=== PATIENT | female | born 1985 | race Two or more races ===

== ENCOUNTER 2019-09-19 16:30 | Inpatient (IN) | payer BC ==
[~2019-09-19] VITALS: Ht 157.5 cm; Wt 84.1 kg
[2019-09-19] MEDS ORDERED: PANTOPRAZOLE 40 MG/10 ML VIAL INJ IV STA (21:48)
[2019-09-19] MEDS ORDERED: SODIUM CHLORIDE 0.9% 1,000 ML IVB ONE (21:48)
[2019-09-19] MEDS ORDERED: MORPHINE SULFATE 4 MG/ML SYR/VIAL IV ONE (22:00)
[2019-09-19] MEDS ORDERED: ONDANSETRON HCL 4 MG/2 ML VIAL IV ONE (22:00)
[2019-09-19 22:10] LABS: Basophils # (auto) 0 uL; Basophils % (auto) 0.4 % (0.0-2.0); Eosinophils # (auto) 0 uL; Eosinophils % (auto) 0.1 % (0.0-7.0); Hematocrit 37.5 % (36.0-46.0); Hemoglobin 13.3 g/dL (12.2-16.2); Lymphocytes % (auto) 12.9 % (10.0-50.0); Mean Corpuscular Hemoglobin 31.3 pg (28.0-32.0); Mean Corpuscular Hgb Conc. 35.4 g/dL (32.0-36.0); Mean Corpuscular Volume 88.3 fL (80.0-100.0); Monocytes # (auto) 0.5 uL; Monocytes % (auto) 5.8 % (0.0-12.0); Neutrophils # (auto) 6.5 uL; Neutrophils % (auto) 80.8 % (37.0-80.0); Platelet Count (auto) 246 10^3/uL (140-450); Red Blood Cells 4.24 10^6/uL (4.0-5.20); Red Cell Distribution Width 13.2 % (11.8-14.3); White Blood Cell 8.1 10^3/uL (4.4-10.8)
[2019-09-19 22:20] LABS: Urine Bacteria MANY /hpf (None Seen); Urine Blood Negative /uL (Negative); Urine Hyaline Cast FEW /lpf (0 - 2); Urine Specific Gravity 1.006 (1.001-1.035); Urine WBC 2 /hpf (0 - 5)
[2019-09-19 22:27] LABS: Albumin 3.9 g/dL (3.4-5.0); BUN/Creatinine Ratio 15.6; Calcium 8.6 mg/dL (8.5-10.1); Potassium 3.9 mmol/L (3.5-5.1)
[2019-09-19 22:30] LABS: Bilirubin, Total 0.5 mg/dL (0.2-1.0); Total Protein 8.3 g/dL (6.4-8.2)
[2019-09-20] MEDS ORDERED: MORPHINE SULFATE 4 MG/ML SYR/VIAL IV ONE ×2 (01:15→03:15)
[2019-09-20] MEDS ORDERED: SODIUM CHLORIDE 0.9% 1,000 ML IV ONE (01:15)
[2019-09-20] MEDS ORDERED: cefTRIAXone 1GM/50ML D5W 50 ML IV ONE (02:00)
[2019-09-20] MEDS ORDERED: MORPHINE SULFATE 4 MG/ML SYR/VIAL IV PRN ×2 (02:45→17:15)
[2019-09-20] MEDS ORDERED: TEMAZEPAM 15 MG CAP PO PRN (02:45)
[2019-09-20] MEDS ORDERED: ONDANSETRON HCL 4 MG/2 ML VIAL IV PRN (02:45)
[2019-09-20] MEDS ORDERED: ACETAMINOPHEN 325 MG TAB PO PRN (02:45)
[2019-09-20] MEDS ORDERED: SODIUM CHLORIDE 0.9% 1,000 ML IV SCH (04:00)
--- NOTE | 2019-09-20 07:55 | NUR ---
MS admit from ER SAMARIA GARCIA admitted to tele/MS after SBAR received. Patient oriented to MIKKI RODAS, RN primary RN, unit, room, bed, and unit policies regarding patient care and visiting hours. Patient weighed by bedscale and encouraged to call if they need any assistance. All questions and concerns addressed, patient verbalized understanding.
[2019-09-20 09:00] VITALS: BP 132/92
[2019-09-20] MEDS ORDERED: MORPHINE SULF INJ 2 MG/ML SYRINGE 1ML ONE (09:21)
[2019-09-20] MEDS ORDERED: MORPHINE SULF INJ 2 MG/ML SYRINGE 1ML IV ONE (09:30)
[2019-09-20] MEDS: FAMOTIDINE 20 MG TAB PO SCH ×2 (10:50→21:28)
[2019-09-20 13:00] VITALS: BP 105/66
[2019-09-20] MEDS: D5W/SOD CHLO 0.9% 1,000 ML IV SCH (14:45)
--- NOTE | 2019-09-20 15:13 | NUR ---
PATIENT BACK FROM CT ABDOMEN WITH CONTRAST.
[2019-09-20] MEDS ORDERED: LIDOCAINE 1% HCL (LOCAL ANESTH.) INJ 20ML MDV ONE (15:27)
[2019-09-20] MEDS ORDERED: SUCCINYLCHOLINE CHLORIDE 20 MG/ML 10ML VIAL IV ONE (15:27)
[2019-09-20] MEDS ORDERED: SODIUM CHLORIDE LOCK 10 ML ONE (15:36)
[2019-09-20] MEDS ORDERED: ONDANSETRON HCL 4 MG/2 ML VIAL ONE (15:36)
[2019-09-20] MEDS ORDERED: PROPOFOL 10 MG/ML 20 ML IV ONE (15:36)
[2019-09-20] MEDS ORDERED: MIDAZOLAM HCL 1MG/1ML-2 ML VIAL ONE (15:36)
[2019-09-20] MEDS ORDERED: fentaNYL CITRATE 100 MCG/2 ML VL ONE (15:36)
[2019-09-20] MEDS ORDERED: ROCURONIUM 10MG/ML 10ML VIAL IV ONE (15:36)
[2019-09-20 15:55] LABS: Basophils # (auto) 0 uL; Basophils % (auto) 0.3 % (0.0-2.0); Eosinophils # (auto) 0 uL; Eosinophils % (auto) 0.1 % (0.0-7.0); Hematocrit 36.1 % (36.0-46.0); Hemoglobin 12.6 g/dL (12.2-16.2); Lymphocytes # (auto) 1.2 uL; Lymphocytes % (auto) 14.2 % (10.0-50.0); Mean Corpuscular Hemoglobin 30.8 pg (28.0-32.0); Mean Corpuscular Hgb Conc. 34.9 g/dL (32.0-36.0); Mean Corpuscular Volume 88.1 fL (80.0-100.0); Monocytes # (auto) 0.6 uL; Monocytes % (auto) 7.7 % (0.0-12.0); Neutrophils # (auto) 6.4 uL; Neutrophils % (auto) 77.7 % (37.0-80.0); Platelet Count (auto) 236 10^3/uL (140-450); Red Cell Distribution Width 13.2 % (11.8-14.3); White Blood Cell 8.2 10^3/uL (4.4-10.8)
--- NOTE | 2019-09-20 15:59 | NUR ---
Took patient down to the OR for laparoscopic cholecystectomy @ [id number]
[2019-09-20] MEDS ORDERED: ceFAZolin 1GM/50ML 50 ML IV ONE (16:03)
[2019-09-20 16:05] LABS: INR 1.02 (0.9-1.15)
[2019-09-20 16:20] LABS: Calcium 8.2 mg/dL (8.5-10.1); Potassium 3.9 mmol/L (3.5-5.1)
[2019-09-20 16:26] LABS: Albumin 3.5 g/dL (3.4-5.0); BUN/Creatinine Ratio 10.5; Bilirubin, Total 0.7 mg/dL (0.2-1.0); Total Protein 7.5 g/dL (6.4-8.2)
[2019-09-20] MEDS ORDERED: NEOSTIGMINE 1 MG/ML INJ (10mg/10ML VIAL) ONE (16:31)
[2019-09-20] MEDS ORDERED: GLYCOPYRROLATE 0.2 MG/ML 1ML VIAL ONE (16:31)
[2019-09-20] MEDS ORDERED: KETOROLAC TROMETH 60MG/2ML VIAL ONE (16:31)
[2019-09-20 16:57] VITALS: BP 144/84
[2019-09-20] MEDS ORDERED: HYDROmorphone HCL 2 MG/ML VL IV PRN (17:15)
[2019-09-20] MEDS ORDERED: fentaNYL CITRATE 100 MCG/2 ML VL IV PRN (17:15)
[2019-09-20] MEDS ORDERED: METOCLOPRAMIDE HCL 5MG/ml INJ 2ml VIAL IV PRN (17:15)
[2019-09-20] MEDS ORDERED: POVIDONE IODINE 10 % TOPICAL OINT 30GM TOP ONE (17:58)
--- NOTE | 2019-09-20 19:45 | NUR ---
assumed care, pt. awake, small dressing on abdominal area dry and intact, with abdominal binder, no c/o pain, no sob.
[2019-09-20] MEDS: metroNIDAZOLE 500MG/100ML 100 ML IV SCH (21:28)
[2019-09-20 21:34] VITALS: BP 114/70
[2019-09-20] MEDS: cefTRIAXone 1GM/50ML D5W 50 ML IV SCH (23:39)
--- NOTE | 2019-09-21 04:50 | NUR ---
pt. t- 100.0, cooling measures applied continously, blanket removed, to keep monitor.
[2019-09-21] MEDS: D5W/SOD CHLO 0.9% 1,000 ML IV SCH ×2 (05:01→21:25)
[2019-09-21 05:08] VITALS: BP_SYST 132; BP_SYST 95; BP_DIAS 57; BP_DIAS 80
[2019-09-21] MEDS: metroNIDAZOLE 500MG/100ML 100 ML IV SCH ×3 (05:45→21:24)
[2019-09-21 06:17] LABS: Basophils # (auto) 0 uL; Basophils % (auto) 0.3 % (0.0-2.0); Eosinophils # (auto) 0 uL; Eosinophils % (auto) 0.4 % (0.0-7.0); Hematocrit 33.1 % (36.0-46.0); Hemoglobin 11.5 g/dL (12.2-16.2); Lymphocytes # (auto) 1.5 uL; Lymphocytes % (auto) 26.1 % (10.0-50.0); Mean Corpuscular Hemoglobin 30.8 pg (28.0-32.0); Mean Corpuscular Hgb Conc. 34.7 g/dL (32.0-36.0); Mean Corpuscular Volume 88.8 fL (80.0-100.0); Monocytes # (auto) 0.4 uL; Monocytes % (auto) 7.3 % (0.0-12.0); Neutrophils # (auto) 3.8 uL; Neutrophils % (auto) 65.9 % (37.0-80.0); Platelet Count (auto) 205 10^3/uL (140-450); Red Blood Cells 3.73 10^6/uL (4.0-5.20); Red Cell Distribution Width 12.9 % (11.8-14.3); White Blood Cell 5.8 10^3/uL (4.4-10.8)
[2019-09-21 06:34] LABS: Potassium 3.5 mmol/L (3.5-5.1)
[2019-09-21] MEDS: HYDROcodone-ACET 5/325MG TAB PO PRN ×2 (06:35→17:09)
[2019-09-21 06:39] LABS: BUN/Creatinine Ratio 5.5; Calcium 7.9 mg/dL (8.5-10.1)
--- NOTE | 2019-09-21 07:50 | NUR ---
Opening Note Assumed pt care from [facility] nurse. Pt is a/ox4 with no s/s of distress or SOB. Pt is currently sitting upright in bed with no complaints at this time. Abdominal binder is on; dressings to pt's medial abdomen are dry and intact; minimal old serous/sanguinous drainage. J P drain is present and draining, serous/ sanguinous fluid present. Discussed POC with pt; pt verbalized understanding. Safety measures maintained with call light within reach, bed in lowest position and side rails up. Will continue to monitor for changes q1hr and prn.
[2019-09-21 09:00] VITALS: BP 125/72
[2019-09-21] MEDS: FAMOTIDINE 20 MG TAB PO SCH ×2 (09:20→21:24)
--- NOTE | 2019-09-21 11:19 | NUR ---
Dr Montes De Oca at Bedside MD to see pt. requests that pt advance diet to mechanical soft for lunch and if tolerated well, to regular for dinner. If pt does not tolerate advancement; regress to prior diets. Will implement and follow through. Addendum: 09/21/19 at 1248 by BERNADINE HARPER RN RN Pt states that she became slightly nauseous after advancing diet to mechanical soft. Pt stated that she was able to tolerate some. Will keep pt at mechanical soft for dinner.
[2019-09-21 13:00] VITALS: BP 122/59
[2019-09-21 17:00] VITALS: BP 125/78
--- NOTE | 2019-09-21 19:05 | NUR ---
ANASTACIO DRAIN 40ML OF SEROUS/SANGUINOUS FLUID DRAINED FROM ANASTACIO DRAIN.
--- NOTE | 2019-09-21 19:30 | NUR ---
ASSUMED CARE, PT. AWAKE, RELATIVES AT BEDSIDE, NO C/O PAIN, DRESSING ON ABDOMEN DRY AND INTACT, NOT IN DISTRESS.
[2019-09-21 22:54] VITALS: BP 118/74
[2019-09-21] MEDS: cefTRIAXone 1GM/50ML D5W 50 ML IV SCH (23:40)
[2019-09-22] MEDS: HYDROcodone-ACET 5/325MG TAB PO PRN (01:46)
[2019-09-22 05:06] VITALS: BP 110/69
[2019-09-22] MEDS: metroNIDAZOLE 500MG/100ML 100 ML IV SCH (05:43)
[2019-09-22 05:59] LABS: Basophils # (auto) 0 uL; Basophils % (auto) 0.6 % (0.0-2.0); Eosinophils # (auto) 0.1 uL; Eosinophils % (auto) 1.2 % (0.0-7.0); Hematocrit 31.1 % (36.0-46.0); Hemoglobin 10.9 g/dL (12.2-16.2); Lymphocytes # (auto) 1.9 uL; Mean Corpuscular Hemoglobin 31.2 pg (28.0-32.0); Mean Corpuscular Volume 89.2 fL (80.0-100.0); Monocytes # (auto) 0.4 uL; Monocytes % (auto) 7.3 % (0.0-12.0); Neutrophils # (auto) 3.4 uL; Neutrophils % (auto) 57.9 % (37.0-80.0); Nucleated Red Blood Cells % 0.1 %; Platelet Count (auto) 200 10^3/uL (140-450); Red Blood Cells 3.49 10^6/uL (4.0-5.20); Red Cell Distribution Width 13.2 % (11.8-14.3); White Blood Cell 5.8 10^3/uL (4.4-10.8)
[2019-09-22 06:18] LABS: Albumin 2.8 g/dL (3.4-5.0); Calcium 8.1 mg/dL (8.5-10.1); Potassium 3.6 mmol/L (3.5-5.1)
[2019-09-22 06:24] LABS: BUN/Creatinine Ratio 9.8; Bilirubin, Total 0.4 mg/dL (0.2-1.0); Total Protein 6.7 g/dL (6.4-8.2)
--- NOTE | 2019-09-22 07:50 | NUR ---
Opening Note Assumed pt care from [facility] nurse. PT is a/ox4 with no s/s of distress or SOB. Pt is currently laying in bed with no complaints at this time. Pt states that she still has not had a BM or passed gas at this time. Abdominal binder is on, 2 medial dressings are clean, dry and intact. Drain to pt's R side is patent and has minimal serous/sanguineous drainage present. Discussed POC with pt; pt verbalized understanding. Safety measures maintained with call light within reach, bed in lowest position and side rails up. Will continue to monitor for changes q1hr and prn.
[2019-09-22] MEDS: FAMOTIDINE 20 MG TAB PO SCH (08:30)
[2019-09-22 09:00] VITALS: BP 121/84
--- NOTE | 2019-09-22 09:30 | NUR ---
Tolerating Advancement of Diet Pt is tolerating advancement of diet to mechanical soft. Will advance pt to regular diet for lunch per MD's request. Will continue to monitor.
--- NOTE | 2019-09-22 11:43 | NUR ---
Dr Rebollar at Bedside\ MD to see pt. To d/c pt home today. Requested that pt follow up with Dr Rios as well as follow up with her as an out pt. Will implement orders and follow through.
[2019-09-22 12:13] VITALS: BP 121/84
--- NOTE | 2019-09-22 12:43 | NUR ---
IV D/C'ED IV REMOVED FROM PT'S R FA. CATHETER WAS REMOVED FULLY INTACT. SITE IS ASYMPTOMATIC. PRESSURE WAS APPLIED TO SITE FOR 3 MINUTES WITH GAUZE AND THEN WRAPPED IN COBAN. PT INSTRUCTED TO KEEP DRESSING ON FOR 30 MINUTES; PT VERBALIZED UNDERSTANDING.
--- NOTE | 2019-09-22 13:04 | NUR ---
PT D/C'ED OFF UNIT PT D/C'ED OFF UNIT VIA WHEELCHAIR ACCOMPANIED BY HER AND SON. PT IS A/OX4 WITH NO S/S OF DISTRESS UPON D/C. PT TOOK ALL BELONGINGS, EDUCATION MATERIAL, PRESCRIPTIONS, AND FOLLOW UP INFORMATION WITH DR TORRES AND OG. IV WAS D/C'ED PRIOR TO D/C. ALL QUESTIONS WERE ANSWERED PRIOR TO D/C.
== END 2019-09-22 13:01 | disposition home or self-care (01) | DRG 854 ==
LOC: ER 16:30 → OVERFLOW 16:31 → WEST WING 09-20 08:00
PROVIDERS: ADMIT Nurse Practitioner; ATTEND Internal Medicine Nephrology
PROC: 0FT44ZZ Resection of Gallbladder, Percutaneous Endoscopic Approach (ICD-10-PCS; principal; 2019-09-20 16:05)
DX: A41.9 Sepsis, unspecified organism (principal); D62 Acute posthemorrhagic anemia; K80.00 Calculus of gallbladder with acute cholecystitis without obstruction; E66.9 Obesity, unspecified; K76.0 Fatty (change of) liver, not elsewhere classified; K21.9 Gastro-esophageal reflux disease without esophagitis; Z68.33 Body mass index [BMI] 33.0-33.9, adult
CPT/HCPCS: 36415; 74176; 76705; 78226; 80048; 80053; 81001; 81025; 82150; 82247; 83605; 83690; 85025; 85610; 86850; 86900; 86901; 87040; 96361; 96365; 96375; C9113; G0378; J0330; J0690; J0696; J1885; J2001; J2250; J2405; J2704; J3490; J7042

== ENCOUNTER 2021-10-27 09:09 | Emergency (ER) | payer BC ==
[~2021-10-27] VITALS: Ht 157.5 cm; Wt 76.7 kg
[2021-10-27 09:42] LABS: Basophils # (auto) 0 10 ^3/uL (0-0.2); Basophils % (auto) 0.1 % (0.0-2.0); Eosinophils # (auto) 0 10 ^3/uL (0-0.8); Eosinophils % (auto) 0.4 % (0.0-7.0); Hematocrit 40.5 % (36.0-46.0); Hemoglobin 13.8 g/dL (12.2-16.2); Lymphocytes # (auto) 0.5 10 ^3/uL (0.4-5.4); Lymphocytes % (auto) 5.8 % (10.0-50.0); Mean Corpuscular Hemoglobin 30.4 pg (28.0-32.0); Mean Corpuscular Hgb Conc. 34.2 g/dL (32.0-36.0); Mean Corpuscular Volume 89.1 fL (80.0-100.0); Monocytes # (auto) 0.3 10 ^3/uL (0-1.3); Neutrophils # (auto) 8.2 10 ^3/uL (1.6-8.6); Neutrophils % (auto) 90.7 % (37.0-80.0); Nucleated Red Blood Cells % 0.1 %; Red Blood Cells 4.55 10^6/uL (4.0-5.20); Red Cell Distribution Width 12.7 % (11.8-14.3); White Blood Cell 9.1 10^3/uL (4.4-10.8)
[2021-10-27 10:08] LABS: Calcium 8.6 mg/dL (8.5-10.1); Potassium 3.7 mmol/L (3.5-5.1)
[2021-10-27 10:14] LABS: Albumin 3.5 g/dL (3.4-5.0); Bilirubin, Total 0.8 mg/dL (0.2-1.0); Total Protein 7.8 g/dL (6.4-8.2)
[2021-10-27 10:34] LABS: Urine Bacteria FEW /hpf (None Seen); Urine Blood 2+ /uL (Negative); Urine Mucus FEW (None Seen); Urine Specific Gravity 1.027 (1.001-1.035); Urine WBC 2 /hpf (0 - 5)
[2021-10-27] MEDS ORDERED: SODIUM CHLORIDE 0.9% 1,000 ML IV ONE ×2 (12:00→14:30)
[2021-10-27] MEDS ORDERED: FOLIC ACID 1 MG TAB PO ONE (12:00)
[2021-10-27] MEDS ORDERED: ACETAMINOPHEN 500 MG TAB PO ONE (14:30)
[2021-10-27] MEDS ORDERED: diphenhdrAMINE HCL 50 MG/1 ML VL IV ONE (14:30)
[2021-10-27] MEDS ORDERED: PROMETHAZINE HCL 25 MG/ML 1ML IV ONE (15:45)
[2021-10-27 16:30] VITALS: BP 94/59
== END 2021-10-27 17:09 | disposition home or self-care (01) ==
LOC: ER 09:09
DX: O98.511 Other viral diseases complicating pregnancy, first trimester (principal); R07.89 Other chest pain; Z3A.01 Less than 8 weeks gestation of pregnancy; Z20.822 Contact with and (suspected) exposure to COVID-19
CPT/HCPCS: 36415; 76801; 76817; 80053; 81001; 84702; 85025; 87070; 87426; 87804; 87880; 93005; 96361; 96374; 99285; C9803; J1200; J7030; U0003